=== PATIENT | male | born 1980 | race Caucasian/White ===

== ENCOUNTER 2019-07-02 21:09 | Emergency (ER) | payer SELFPAY ==
[~2019-07-02] VITALS: Ht 172.7 cm; Wt 72.6 kg
[2019-07-02 21:35] VITALS: Ht 172.7 cm; Wt 72.6 kg
[2019-07-03 03:00] VITALS: BP 121/86
== END 2019-07-03 03:00 | disposition home or self-care (01) ==
LOC: ED 21:09
DX: B34.9 Viral infection, unspecified (principal); Z03.818 Encounter for observation for suspected exposure to other biological agents ruled out
CPT/HCPCS: 87804; Q0092; U0002